=== PATIENT | male | born 1975 | race Caucasian/White ===

== ENCOUNTER 2017-02-07 15:00 | Emergency (ER) | payer MEDICAID ==
[~2017-02-07] VITALS: Ht 165.1 cm; Wt 58.0 kg
[~2017-02-07 15:00] MED LIST: ACET-514 PO; AZIT250T94 PO; CODE118S PO; IBUP800T25 PO; LORA0.5T PO; OSLT75C PO
[2017-02-07 15:02] VITALS: Ht 165.1 cm; Wt 58.0 kg
[2017-02-07] MEDS ORDERED: IBUPROFEN 200 MG TAB PO ONE (16:00)
[2017-02-07 16:24] LABS: ADD UMIC YES; UR ASCORBIC ACID NEGATIVE (NEGATIVE); UR BACTERIA FEW /HPF (NONE SEEN); UR BILIRUBIN (Dip) NEGATIVE (NEGATIVE); UR BLOOD (Dip) 3+ mg/dL (NEGATIVE); UR CLARITY CLOUDY (CLEAR); UR COLOR YELLOW (YELLOW); UR GLUCOSE (Dip) NEGATIVE (NEGATIVE); UR KETONES (Dip) NEGATIVE (NEGATIVE); UR LEUKOCYTE ESTERASE (Dip) 3+ Leu/ul (NEGATIVE); UR MUCUS MODERATE /HPF (NONE SEEN); UR NITRITE (Dip) NEGATIVE (NEGATIVE); UR RBC 138 /HPF (0-5); UR SPECIFIC GRAVITY (Dip) 1.023 (1.003-1.030); UR SQUAMOUS EPITHELIAL CELL FEW /HPF (FEW); UR TOTAL PROTEIN (Dip) 2+ mg/dl (NEGATIVE); UR UROBILINOGEN (Dip) 1+ mg/dL (NEGATIVE)
--- NOTE | 2017-02-07 16:48 | ERA ---
ER Documentation Chief Complaint Date/Time DATE: 02/07/17 TIME: 16:40 Chief Complaint painful urination - hx of kidney stones HPI 41-year-old male presenting with a chief complaint of right flank pain2 days. Patient denies a history of kidney stones. Patient is also complaining of is complaining of dysuria, hematuria. Has not taken any medications or other measures to relieve the symptoms. Denies , discharge, multiple sexual partners, recreational drugs or alcohol abuse. History of a cholecystectomy multiple years ago. Has had symptoms like this in the past but cannot recall the diagnosis with the treatment. No other abdominal surgery. Patient has no other complaints and describes no other associated manifestations. ROS All systems reviewed and are negative except as per history of present illness. Medications Home Meds Active Scripts Phenazopyridine Hcl* (Pyridium*) 100 Mg Tab, 100 MG PO TID Y for URINARY PAIN, # 8 TAB Prov:CHARAN LUA PA-C 02/07/17 Ciprofloxacin Hcl* (Ciprofloxacin Hcl*) 500 Mg Tablet, 500 MG PO BID for 14 Days , TAB Prov:CHARAN LUA PA-C 02/07/17 Lorazepam* (Lorazepam*) 0.5 Mg Tablet, 0.5 MG PO Q8 Y for stress, #6 TAB Prov:GISSEL BARAJAS DO 07/25/15 Ibuprofen* (Ibuprofen*) 800 Mg Tab, 800 MG PO TID, #14 TAB Prov:GISSEL BARAJAS DO 07/25/15 Acetaminophen (Acetaminophen) 325 Mg Tablet, 975 MG PO Q8, #30 TAB Prov:GISSEL BARAJAS DO 07/25/15 Promethazine w/Codeine (Phenergan w/Codeine Syrup) 5 Ml Syrup, 5 ML PO Q6 Y for COUGH, #120 ML Prov:GISSEL BARAJAS DO 07/25/15 Azithromycin* (Zithromax*) 250 Mg Tablet, 250 MG PO .ZPACK DIRECTED, #6 TAB TAKE 500 MG (2 TABS) THE FIRST DAY THEN 250 MG (1 TAB) DAYS 2-5 Prov:GISSEL BARAJAS DO 07/25/15 Oseltamivir Phosphate* (Tamiflu*) 75 Mg Capsule, 75 MG PO BID for 5 Days, CAP Prov:GISSEL BARAJAS DO 07/25/15 Allergies Allergies: Coded Allergies: No Known Allergy (Unverified , 07/25/15) PMhx/Soc History of Surgery: Yes (CHOLECYSTECTOMY) Anesthesia Reaction: No Hx Alcohol Use: No Hx Substance Use: No Hx Tobacco Use: No Smoking Status: Never smoker Physical Exam Vitals Vital Signs Date Time Temp Pulse Resp B/P Pulse Ox O2 Delivery O2 Flow Rate FiO2 02/07/17 15:02 98.3 91 19 139/78 98 Physical Exam Const: 41-year-old male in no acute distress. Head: Atraumatic Eyes: Pinpoint pupils bilaterally. EOMI bilaterally.Normal Conjunctiva ENT: Normal External Ears, Nose and Mouth. Neck: Full range of motion..~ No meningismus. Resp: Clear to auscultation bilaterally Cardio: Regular rate and rhythm, no murmurs Abd: Soft, non tender, non distended. Normal bowel sounds Skin: No petechiae or rashes Back: No CVA tenderness.No midline or flank tenderness Ext: No cyanosis, or edema Neur: Awake and alert Psych: Normal Mood and Affect Results 24 hrs Laboratory Tests Test 02/07/17 16:00 Urine Color YELLOW Urine Clarity CLOUDY Urine pH 5.0 Urine Specific [place] 1.023 Urine Ketones NEGATIVEmg/dL Urine Nitrite NEGATIVEmg/dL Urine Bilirubin NEGATIVEmg/dL Urine Urobilinogen 1+mg/dL Urine Leukocyte Esterase 3+[place]/ul Urine Microscopic RBC 138/HPF Urine Microscopic WBC > 182/HPF Urine Squamous Epithelial Cells FEW/HPF Urine Calcium Oxalate Crystals MANY/HPF Urine Bacteria FEW/HPF Urine Mucus MODERATE/HPF Urine Hemoglobin 3+mg/dL Urine Glucose NEGATIVEmg/dL Urine Total Protein 2+mg/dl Current Medications Medications (Trade) Dose Ordered Sig/Ashli Route PRN Reason Start Time Stop Time Status Last Admin Dose Admin Ibuprofen (Motrin) 400 mg ONCE ONCE PO 02/07/17 16:00 02/07/17 16:01 DC 02/07/17 15:50 Procedures/MDM .41-year-old male presenting with a chief complaint of right flank pain, hematuria, dysuria 2 days.Patient states he has not taken any medications. Is afebrile. Vitals are stable. No CVA tenderness. No abdominal tenderness. Similar symptoms in past but does not remember the medication diagnoses or treatment. Urinalysis was obtained and revealed the following: Urinalysis: Leukocyte esterase 3+. RBC 138. WBC 182. Calcium oxalate crystals many. Urine bacteria few. Hemoglobin 3+. Protein 2+. Ultrasound:Unremarkable Culture was obtained. Patient is afebrile. No CVA tenderness. Tolerates p.o. Appears otherwise well. [place] any nausea, vomiting, diarrhea. At this time I do not suspect pyelonephritis, testicular torsion, mechanical obstruction, hernia, appendicitis , intestinal ischemia, AAA, or diverticulitis. The patient is well appearing, and tolerates PO. I have spoke with the patient regarding their condition and future management. They have verbally responded that they understand their status and treatment plan. The patients vitals are stable, and their current condition is appropriate for discharge. The patient will be given discharge instructions with return precautions. Discharge medications: Cipro 14 days.Pyridium. Departure Diagnosis: Primary Impression: UTI (urinary tract infection) Qualified Code: N39.0 - Urinary tract infection with hematuria, site unspecified Condition: Stable Additional Instructions: Follow up with your PCP within the next 1-3 days for a more thorough evaluation and a possible referral to a specialist. Return the the emergency department immediately if symptoms worsen or change. If you have any questions regarding medications, ask your pharmacist or us before you leave. If any adverse reactions occur while taking your medications, discontinue the treatment and return to the emergency department immediately. Take your medications as directed, and complete the entire course of treatment. CHARAN LUA PA-C Feb 07, 2017 16:48
--- NOTE | 2017-02-07 16:52 | RADRPT ---
PROCEDURE: Renal US. CLINICAL INDICATION: Right flank pain. TECHNIQUE: Multiple sonographic images of the kidneys and urinary bladder were obtained. The imag es were reviewed on a PACS workstation. COMPARISON: No prior studies are available for comparison. FINDINGS: The right kidney measures 9.0 x 5.4 x 5.3 cm. The left kidney measures 10.1 x 5.0 x 4.2 cm. There is no renal mass. There is no hydronephrosis. There is no renal calculus. Renal parenchymal thickness is normal bilaterally. Echogenicity is normal bilaterally. The perirenal regions are normal with no fluid collection or mass. The urinary bladder is unremarkable. IMPRESSION: 1. Unremarkable renal ultrasound. RPTAT: QQ .James Chan MD, Date Time Electronically viewed and signed by .James Chan MD, on 02/07/2017 16:52 .R/
[2017-02-07] MEDS ORDERED: CIPR500T4 PO (17:20)
[2017-02-07] MEDS ORDERED: PHEN-537 PO (17:20)
== END 2017-02-07 17:27 | disposition home or self-care (01) ==
LOC: FTE 15:00
DX: N39.0 Urinary tract infection, site not specified (principal)
CPT/HCPCS: 76775; 81001; 87086; Z7502; Z7610